=== PATIENT | female | born 2000 | race Caucasian/White ===

== ENCOUNTER 2022-07-18 21:31 | Emergency (ER) | payer OTHER | END 2022-07-18 23:01 | disposition left against medical advice (07) | LOC: FER 21:31 | DX: R68.84 Jaw pain (principal); Z88.0 Allergy status to penicillin; Z53.21 Procedure and treatment not carried out due to patient leaving prior to being seen by health care provider; Z88.6 Allergy status to analgesic agent; Z88.8 Allergy status to other drugs, medicaments and biological substances ==